=== PATIENT | female | born 1965 | race American Indian/Alaskan Native ===

== ENCOUNTER 2022-06-09 07:01 | Inpatient (IN) | payer MEDICAID ==
[~2022-06-09] VITALS: Ht 165.1 cm; Wt 76.9 kg
[2022-06-09 09:55] VITALS: BP 134/92
[2022-06-09] MEDS ORDERED: RISP1TAB48 PO (10:49)
[2022-06-09] MEDS ORDERED: SERT-440 PO (10:49)
[2022-06-09] MEDS ORDERED: ALBUTEROL SULFATE HFA 90 MCG/PUFF 8 GM INHALER IH PRN (11:15)
[2022-06-09] MEDS ORDERED: ACETAMINOPHEN 325 MG TABLET PO PRN (11:15)
[2022-06-09] MEDS ORDERED: CLON1TAB12 PO (11:21)
[2022-06-09] MEDS ORDERED: TRAZ-257 PO (11:21)
[2022-06-09] MEDS: SERTRALINE HCL 100 MG TABLET PO SCH (12:31)
[2022-06-09] MEDS ORDERED: PNEUMOCOCCAL VACCINE POLYVALENT 0.5 ML VIAL [PPSV23] IM. ONE (12:45)
[2022-06-09] MEDS ORDERED: NICOTINE 14 MG/24 HOUR PATCH TD SCH (13:00)
[2022-06-09 16:30] VITALS: BP 123/88
[2022-06-09] MEDS: LORazepam 2 MG TABLET PO PRN (18:38)
[2022-06-09] MEDS: RisperiDONE 1 MG TABLET PO SCH (20:31)
[2022-06-10 00:52] VITALS: BP 132/79
[2022-06-10] MEDS ORDERED: ALBUTEROL SULFATE HFA 90 MCG/PUFF 8 GM INHALER IH PRN (07:00)
[2022-06-10] MEDS ORDERED: PETROLATUM,WHITE 28 GM JELLY TP PRN (07:00)
[2022-06-10] MEDS ORDERED: DOCUSATE SODIUM 100 MG CAPSULE PO PRN (07:00)
[2022-06-10] MEDS ORDERED: MAG HYDROX/AL HYDROX/SIMETH ES 30 ML SUSPENSION UDCUP PO PRN (07:00)
[2022-06-10] MEDS ORDERED: GuaiFENesin/D-METHORPHAN [SUGAR-FREE] 200-20MG/10 ML SYRUP UDCUP PO PRN (07:00)
[2022-06-10] MEDS ORDERED: ONDANSETRON HCL 4 MG TABLET PO PRN (07:00)
[2022-06-10] MEDS ORDERED: LOPERAMIDE HCL 2 MG CAPSULE PO PRN (07:00)
[2022-06-10] MEDS ORDERED: CloNIDine HCL 0.1 MG TABLET PO PRN (07:00)
[2022-06-10 08:00] LABS: BASOPHILS % (AUTO) 0.8 % (0.0-2.0); EOSINOPHILS % (AUTO) 1.8 % (1.0-6.0); HEMATOCRIT 41.7 % (36-46); HEMOGLOBIN 13.9 g/dL (12.0-16.0); LYMPHOCYTES % (AUTO) 36.5 % (22.0-44.0); MEAN CORPUSCULAR HEMOGLOBIN 31.9 pg (26.0-34.0); MEAN CORPUSCULAR HGB CONC 33.3 G/dL (31.0-37.0); MEAN CORPUSCULAR VOLUME 96 fL (80-100); MONOCYTES # (AUTO) 0.6 K/uL (0.1-1.0); MONOCYTES % (AUTO) 11.3 % (2.0-9.0); NEUTROPHILS # (AUTO) 2.7 K/uL (1.8-7.7); NEUTROPHILS % (AUTO) 49.6 % (40.0-70.0); PLATELET COUNT (AUTO) 243 K/uL (150-450); RED BLOOD CELL COUNT(AUTO) 4.36 MIL/uL (4.00-5.20); RED CELL DISTRIBUTION WIDTH 13.8 % (11.5-14.5)
[2022-06-10 08:01] LABS: HEMOGLOBIN A1C 4.7 % (3.8-5.6)
[2022-06-10 08:20] VITALS: BP 137/87
[2022-06-10 08:20] LABS: ALANINE AMINOTRANSFERASE 16 U/L (12-78); ALBUMIN 3.2 g/dL (3.4-5.0); ALKALINE PHOSPHATASE 86 U/L (46-116); ANION GAP 6 mmol/L (8-16); ASPARTATE AMINOTRANSFERASE 15 U/L (15-37); BILIRUBIN,TOTAL 0.4 mg/dL (0.1-1.0); CALCIUM, TOTAL 8.9 mg/dL (8.8-10.5); CARBON DIOXIDE 28 mmol/L (22-29); CHLORIDE 105 mmol/L (98-107); CHOL/HDL RATIO 2.3 (3.9-5.7); CHOLESTEROL 189 mg/dL (131-200); CREATININE 0.58 mg/dL (0.60-1.30); GLOMERULAR FILTR. RATE CALC > 60 mL/min (>60); GLUCOSE,RANDOM 88 mg/dL (70-110); HCG,QUANTITATIVE 4 mIU/mL (0-6); HDL CHOLESTEROL 81 mg/dL (40-60); LDL CHOL (CALC.) 88 mg/dL (0-130); SODIUM SERUM 139 mmol/L (136-145); THYROID STIMULATING HORMONE 2.26 uIU/mL (0.36-3.74); TOTAL PROTEIN, SERUM 6.5 g/dL (6.4-8.2); TRIGLYCERIDES 99 mg/dL (15-150); UREA NITROGEN, BLOOD 9 mg/dL (7-18)
[2022-06-10] MEDS: SERTRALINE HCL 100 MG TABLET PO SCH (08:31)
[2022-06-10] MEDS: LORazepam 2 MG TABLET PO PRN (12:32)
[2022-06-10] MEDS: ACETAMINOPHEN 325 MG TABLET PO PRN (12:33)
[2022-06-10 16:23] VITALS: BP 129/70
[2022-06-10 18:24] VITALS: BP 128/82
[2022-06-10] MEDS: IBUPROFEN 400 MG TABLET PO PRN (18:27)
[2022-06-10] MEDS: NICOTINE 14 MG/24 HOUR PATCH TD PRN (19:54)
[2022-06-10] MEDS: RisperiDONE 1 MG TABLET PO SCH (20:34)
[2022-06-10] MEDS: ZOLPIDEM TARTRATE 10 MG TABLET PO PRN (20:43)
[2022-06-11 08:40] VITALS: BP 129/66
[2022-06-11] MEDS: SERTRALINE HCL 100 MG TABLET PO SCH (09:08)
[2022-06-11] MEDS: LORazepam 2 MG TABLET PO PRN ×2 (10:08→20:25)
[2022-06-11] MEDS: ACETAMINOPHEN 325 MG TABLET PO PRN (15:04)
[2022-06-11] MEDS: NICOTINE 14 MG/24 HOUR PATCH TD PRN (15:05)
[2022-06-11 20:14] VITALS: BP 114/71
[2022-06-11] MEDS: RisperiDONE 1 MG TABLET PO SCH (20:21)
[2022-06-12] MEDS: SERTRALINE HCL 100 MG TABLET PO SCH (08:19)
[2022-06-12 08:26] VITALS: BP 141/85
[2022-06-12] MEDS: IBUPROFEN 400 MG TABLET PO PRN (08:26)
[2022-06-12] MEDS: LORazepam 2 MG TABLET PO PRN ×2 (08:27→15:19)
[2022-06-12] MEDS: NICOTINE 14 MG/24 HOUR PATCH TD PRN (10:55)
[2022-06-12] MEDS: HALOPERIDOL 5 MG TABLET PO PRN (15:19)
[2022-06-12 20:10] VITALS: BP 134/90
[2022-06-12] MEDS: RisperiDONE 1 MG TABLET PO SCH (20:20)
[2022-06-13 08:08] VITALS: BP 112/61
[2022-06-13] MEDS: SERTRALINE HCL 100 MG TABLET PO SCH (08:33)
[2022-06-13] MEDS: LORazepam 2 MG TABLET PO PRN ×2 (10:28→16:55)
[2022-06-13] MEDS: NICOTINE 14 MG/24 HOUR PATCH TD PRN (11:01)
[2022-06-13] MEDS: ACETAMINOPHEN 325 MG TABLET PO PRN (16:55)
[2022-06-13 20:05] VITALS: BP 121/78
[2022-06-13] MEDS: RisperiDONE 1 MG TABLET PO SCH (20:18)
[2022-06-14 08:08] VITALS: BP 116/70
[2022-06-14] MEDS: SERTRALINE HCL 100 MG TABLET PO SCH (08:10)
[2022-06-14] MEDS: LORazepam 2 MG TABLET PO PRN ×2 (11:02→16:16)
[2022-06-14] MEDS: IBUPROFEN 400 MG TABLET PO PRN (11:03)
[2022-06-14] MEDS: MAGNESIUM HYDROXIDE SUSPENSION 30 ML UDCUP PO PRN (13:47)
[2022-06-14] MEDS: NICOTINE 14 MG/24 HOUR PATCH TD PRN (15:47)
[2022-06-14 20:09] VITALS: BP 118/75
[2022-06-14] MEDS: RisperiDONE 1 MG TABLET PO SCH (20:09)
[2022-06-15 06:02] VITALS: BP 132/92
[2022-06-15] MEDS: IBUPROFEN 400 MG TABLET PO PRN ×3 (06:15→20:44)
[2022-06-15] MEDS: LORazepam 2 MG TABLET PO PRN ×2 (06:15→14:09)
[2022-06-15] MEDS: SERTRALINE HCL 100 MG TABLET PO SCH (08:18)
[2022-06-15 08:24] VITALS: BP 107/67
[2022-06-15 09:56] LABS: GLUCOMETER DEV NAME(LOC) POC.BV
[2022-06-15] MEDS: NICOTINE 14 MG/24 HOUR PATCH TD PRN (10:40)
[2022-06-15 20:33] VITALS: BP 114/72
[2022-06-15] MEDS: ZOLPIDEM TARTRATE 10 MG TABLET PO PRN (20:43)
[2022-06-15] MEDS: RisperiDONE 1 MG TABLET PO SCH (20:44)
[2022-06-16 08:41] VITALS: BP 107/67
[2022-06-16] MEDS: SERTRALINE HCL 100 MG TABLET PO SCH (09:11)
[2022-06-16] MEDS: HALOPERIDOL 5 MG TABLET PO PRN (09:16)
[2022-06-16] MEDS: MAGNESIUM HYDROXIDE SUSPENSION 30 ML UDCUP PO PRN (10:13)
[2022-06-16] MEDS: NICOTINE 14 MG/24 HOUR PATCH TD PRN (18:19)
[2022-06-16] MEDS: RisperiDONE 1 MG TABLET PO SCH (20:27)
[2022-06-16 20:38] VITALS: BP 110/66
[2022-06-16] MEDS: IBUPROFEN 400 MG TABLET PO PRN (20:38)
[2022-06-17] MEDS: SERTRALINE HCL 100 MG TABLET PO SCH (08:13)
[2022-06-17 08:35] VITALS: BP 143/76
[2022-06-17 18:29] VITALS: BP 131/72
[2022-06-17] MEDS: IBUPROFEN 400 MG TABLET PO PRN (18:29)
[2022-06-17] MEDS: RisperiDONE 1 MG TABLET PO SCH (20:33)
[2022-06-17 20:37] VITALS: BP 137/80
[2022-06-18 08:25] VITALS: BP 124/78
[2022-06-18] MEDS: SERTRALINE HCL 100 MG TABLET PO SCH (09:02)
[2022-06-18] MEDS: BusPIRone HCL 5 MG TABLET PO SCH ×2 (11:12→20:17)
[2022-06-18] MEDS: ACETAMINOPHEN 325 MG TABLET PO PRN (18:39)
[2022-06-18] MEDS: NICOTINE 14 MG/24 HOUR PATCH TD PRN (18:40)
[2022-06-18 20:10] VITALS: BP 123/78
[2022-06-18] MEDS: RisperiDONE 1 MG TABLET PO SCH (20:17)
[2022-06-19 08:51] VITALS: BP 122/75
[2022-06-19] MEDS: SERTRALINE HCL 100 MG TABLET PO SCH (09:00)
[2022-06-19] MEDS: BusPIRone HCL 5 MG TABLET PO SCH ×2 (09:00→21:19)
[2022-06-19] MEDS: IBUPROFEN 400 MG TABLET PO PRN ×2 (12:37→22:54)
[2022-06-19] MEDS: NICOTINE 14 MG/24 HOUR PATCH TD PRN (12:38)
[2022-06-19] MEDS ORDERED: BUSP5TAB20 PO ×2 (17:20→22:20)
[2022-06-19 20:05] VITALS: BP 130/85
[2022-06-19] MEDS: RisperiDONE 1 MG TABLET PO SCH (21:19)
[2022-06-19] MEDS ORDERED: RISP1TAB89 PO (22:20)
[2022-06-19] MEDS ORDERED: SERT-162 PO (22:20)
== END 2022-06-20 10:02 | disposition home or self-care (01) | DRG 750 ==
LOC: B2S 09:31
PROVIDERS: ADMIT Psychiatry & Neurology Psychiatry; ATTEND Psychiatry & Neurology Psychiatry
DX: F25.0 Schizoaffective disorder, bipolar type (principal); R45.851 Suicidal ideations; G47.00 Insomnia, unspecified; K59.00 Constipation, unspecified; Z59.00 Homelessness unspecified; Z63.4 Disappearance and death of family member; Z79.899 Other long term (current) drug therapy; Z81.8 Family history of other mental and behavioral disorders; Z91.51 Personal history of suicidal behavior; R03.0 Elevated blood-pressure reading, without diagnosis of hypertension; Z20.822 Contact with and (suspected) exposure to COVID-19
CPT/HCPCS: 80053; 80061; 83036; 84436; 84439; 84443; 84702; 85025; 86592; G0480